=== PATIENT | female | born 1940 | race Caucasian/White ===

== ENCOUNTER 2017-05-29 08:05 | Day surgery (SDC) | payer OTHER ==
[2017-05-29] MEDS ORDERED: DIAZEPAM 5 MG TAB PO ONE (08:10)
[2017-05-29] MEDS ORDERED: diphenhydrAMINE 25 MG CAP PO ONE ×2 (08:10→08:37)
[2017-05-29] MEDS ORDERED: ASPIRIN EC 325 MG TAB PO ONE ×2 (08:10→08:37)
[2017-05-29] MEDS ORDERED: FAMOTIDINE 20 MG TAB PO ONE (08:10)
[2017-05-29] MEDS ORDERED: NS 1,000 ML IV ONE (08:10)
[2017-05-29] MEDS ORDERED: ceFAZolin 2 GM/DEXTROSE 100 ML IV ONE (08:15)
[2017-05-29] MEDS ORDERED: BACITRACIN IRRIGATION/NS 50,000 UNITS/1,000 ML BTL IRR ONE (08:15)
--- NOTE | 2017-05-29 08:30 | CPEKG ---
Heart Rate: 68 RR Interval: 882 P-R Interval: 153 QRSD Interval: 144 QT Interval: 460 QTC Interval: 490 P [place]: 0 QRS [place]: 0 T Wave [place]: 3 EKG Severity - ABNORMAL ECG - EKG Impression: ATRIAL-VENTRICULAR DUAL-PACED COMPLEXES Electronically Signed By: Mehran Morelos 29-May-2017 09:43:34
[2017-05-29] MEDS ORDERED: FAMOTIDINE 20 MG TAB ONE (08:37)
[2017-05-29] MEDS ORDERED: DIAZEPAM 5 MG TAB ONE (08:37)
[2017-05-29 08:55] LABS: % IMMATURE GRANULYOCYTES 0.6 % (0.0-1.1); ABSOLUTE IMMATURE GRANULOCYTES 0.03 10^3/uL (0.00-0.10); ADD DIFF? NO; ADD MORPH? NO; ADD SCAN? NO; ATYPICAL LYMPHOCYTE FLAG 20 (0-99); FRAGMENT RBC FLAG 0 (0-99); HEMATOCRIT 39.8 % (38.0-47.0); LEFT SHIFT FLG 10 (0-99); LIPEMIA HEMOLYSIS FLAG 80 (0-99); MEAN CELL HEMOGLOBIN 30.1 pg (27.9-34.1); MEAN CELL HEMOGLOBIN CONCENTR. 32.7 g/dL (32.4-36.7); MEAN CELL VOLUME 92.1 fL (81.5-99.8); MEAN PLATELET VOLUME 10.8 fL (8.7-11.7); PLATELET CLUMPS FLAG 10 (0-99); PLATELET COUNT 174 10^3/uL (150-400); RED BLOOD CELL COUNT 4.32 10^6/uL (4.18-5.33); RED CELL DISTRIBUTION WIDTH 13.8 % (11.5-15.2)
[2017-05-29 09:02] LABS: INR 1.14 (0.83-1.16); PROTIME(PATIENT) 14.5 SEC (12.0-15.0)
[2017-05-29 09:24] LABS: ANION GAP 13 mEq/L (8-16); CALCIUM 9.4 mg/dL (8.5-10.4); CARBON DIOXIDE 21 mEq/l (22-31); CHLORIDE 109 mEq/L (97-110); CHOLESTEROL 135 mg/dL (140-220); CHOLESTEROL/HDL RATIO 3.21 RATIO (1.00-4.44); CREATININE 0.9 mg/dL (0.6-1.0); GLOMERULAR FILTRATION RATE > 60; GLUCOSE 108 mg/dL (70-100); HIGH DENSITY LIPOPROTEIN 42 mg/dL (40-85); LDL/HDL RATIO 1.57 RATIO (1.00-3.22); LOW DENSITY LIPOPROTEIN 66 mg/dL (80-100); NON-HIGH DENSITY LIPOPROTEIN 93 mg/dL (90-129); POTASSIUM 4.4 mEq/L (3.5-5.2); SODIUM 143 mEq/L (134-144); TRIGLYCERIDE 138 mg/dL (35-135); VERY LOW DENSITY LIPOPROTEINS 27 mg/dL (8-25)
[2017-05-29] MEDS ORDERED: LIDOCAINE 1% 300 MG/30 ML SDV ONE ×2 (09:54→11:00)
[2017-05-29] MEDS ORDERED: fentaNYL 100 MCG/2 ML INJ ONE ×2 (09:55→10:55)
[2017-05-29] MEDS ORDERED: IOPAMIDOL (ISOVUE-370) 150 ML BTL IV ONE (09:55)
[2017-05-29] MEDS ORDERED: MIDAZOLAM 2 MG/2 ML VIAL ONE ×2 (09:55→10:56)
[2017-05-29] MEDS ORDERED: LIDO/EPI 1% **for epidural** 30 ML SDV ONE (11:00)
[2017-05-29] MEDS ORDERED: BUPIVACAINE 0.5% 30 ML SDV ONE (11:00)
--- NOTE | 2017-05-29 13:55 | CPIP ---
[f rep st] INVASIVE CARDIAC PROCEDURE DATE OF PROCEDURE: 05/29/2017 PROCEDURE: Implantable cardioverter defibrillator generator change. INDICATIONS: The patient is 76 years old. She has a known history of an ischemic cardiomyopathy. She had a biventricular ICD that was implanted in October of 2005. She had a generator change plac ed in October of 2011. Her current device is at elective replacement indicators. DESCRIPTION OF PROCEDURE: Following informed consent and in the fasting state, the patient was brou ght to the cardiac catheterization laboratory. The left chest was prepped and draped in the usual s terile fashion. 2% lidocaine was infiltrated into the skin overlying the existing ICD in the left i nfraclavicular fossa. Immediately prior to the procedure, prophylactic antibiotics were administere d. Using the #10 blade, a 4 cm incision was made. Using blunt and sharp dissection as well electro cautery for hemostasis, the capsule was identified. This was opened sharply, and the device was del ivered from the field. All leads were disconnected from the existing device. The pocket was then i rrigated. The new device was brought to the field. All leads were connected to the new device acco rding to outpatient scheduler guidelines. At this point, all leads were reinterrogate through the device. This demonstrated acceptable capture and sensing. The ICD pocket was then closed with 3 layers usin g 2 layers of interrupted suture using 2-0 and 3-0 Vicryl and finally running Stratafix for the skin . Steri-Strips and a dry dressing were applied. COMPLICATIONS: None. DEVICE INFORMATION: The newly implanted device is a Medtronic Viva XT, model #TSAM4D0, serial #[id number]. All the existing leads were implanted November 18, 2005. The atrial lead is a Medtronic 50 76, 52 cm lead, serial #[id number]. The right ventricular lead is Medtronic 6949, 65 cm lead, seria l #[id number]. This is a Sprint Braulio lead currently under recall with acceptable lead impedance and no evidence of noise. The coronary sinus lead is a [employer], 4194, 78 cm lead, [id number]. In the atrium, sensed P waves are 2.6 mV with lead impedance of 361 ohms and a threshold 0.5 V at 0.4 msec. In the right ventricle, sensed R-waves are 14.8 mV with a lead impedance of 893 ohms a nd a capture threshold of 0.75 V at 0.4 msec. The coronary sinus lead impedance is 304 ohms with a threshold of 1.75 V at 0.4 msec. DISPOSITION: The patient will be recovered in the CVC. She will be discharged home later today. /[id number]/MODL
--- NOTE | 2017-05-29 14:10 | CPIP ---
[f rep st] INVASIVE CARDIAC PROCEDURE DATE OF PROCEDURE: 05/29/2017 INDICATIONS: The patient is a 76-year-old female. She has known coronary artery disease and a hist ory of an ischemic cardiomyopathy. Recently, she has developed dyspnea with [place] [employer] ion Functional Class III symptoms associated with [place] Cardiovascular [employer] Class 3 angina. S he is referred for right and left heart catheterization with this history. PROCEDURE: Diagnostic right and left heart catheterization, coronary angiography, left ventriculogr aphy. TECHNIQUE: Following informed consent and in the fasting state, the patient was brought to the [facility] catheterization laboratory. The right groin was prepped and draped in the usual sterile fashion . The modified Seldinger technique was used to access the right femoral vein and femoral artery. A 6-Belizean arterial and 7-Belizean venous sheath were placed. Using the PWP catheter, a full right hea rt catheterization was performed. Using standard Multipack, orthogonal images were obtained of the coronary arteries and left ventriculography was performed. Following the procedure, all catheters w ere removed from the body. FINDINGS: HEMODYNAMICS: The pulmonary capillary wedge pressure was 32 mmHg; pulmonary artery press ure 55/26/38 mmHg; right ventricular pressure 50/13/21 mmHg; right atrial pressure 22 mmHg; left demond tricular pressure 126/15/27 mmHg; aortic pressure 125/68/92 mmHg. Aortic saturation 98.3%, pulmonar y artery saturation 76%, right atrial saturation 79%. Calculated cardiac output by Sharlene was 5.7 L/m inute per meter squared. ANGIOGRAPHY: 1. Left main: Left main is a large caliber vessel. There is appropriate bifurcation into the left anterior descending and circumflex distributions. The left main contains a distal 20% stenosis. 2. Left anterior descending: The left anterior descending is large caliber transapical vessel. Du ring its course toward the apex, there are 2 small diagonal branches that are identified. There is also a large multi-branching septal perforators which gives off collaterals to the right coronary ar bradley. The [place] LAD and branch diagonal vessels are unobstructed. They do contain luminal irregul arities up to 20%. There is, however, a high-grade eccentric and ulcerated lesion in a large septal product lister, resulting in about a 90% obstruction. 3. Circumflex: The circumflex is large in caliber in the proximal vessel. During its course in th e AV groove, it gives rise to a single bifurcating obtuse marginal branch, after which it becomes di minutive. There is a 70% lesion noted immediately proximal to the bifurcation in the obtuse margina l branch. 4. Right coronary artery: The right coronary artery is known to be chronically occluded. There is collateralization from the left system via the septal arcade. LEFT VENTRICULOGRAPHY: The left ventriculogram was complicated by ventricular tachycardia. The eje ction fraction appears to be 60% to 65%, estimated on the final beat of the ventriculogram. IMPRESSION: 1. [place] coronary artery disease characterized by a known chronically occluded right coronary wojciech ry collateralized from the left, associated with a 70% lesion of a bifurcating obtuse marginal branc h and a high-grade 90% ulcerated septal lesion. 2. History of ischemic cardiomyopathy, now with normalization of the ejection fraction. 3. No significant valvular heart disease identified. 4. Evidence of elevated filling pressures with a markedly elevated pulmonary capillary wedge pressu re of 32 mmHg. /[id number]/MODL
== END 2017-05-29 19:05 | disposition home or self-care (01) ==
LOC: FCATH 08:05
PROVIDERS: ATTEND Internal Medicine Cardiovascular Disease
PROC: 02HL3KZ Insertion of Defibrillator Lead into Left Ventricle, Percutaneous Approach (ICD-10-PCS; principal; 2017-05-29)
PROC: 4A023N8 Measurement of Cardiac Sampling and Pressure, Bilateral, Percutaneous Approach (ICD-10-PCS; principal; 2017-05-29)
PROC: 0JPT0PZ Removal of Cardiac Rhythm Related Device from Trunk Subcutaneous Tissue and Fascia, Open Approach (ICD-10-PCS; principal; 2017-05-29)
PROC: B2151ZZ Fluoroscopy of Left Heart using Low Osmolar Contrast (ICD-10-PCS; principal; 2017-05-29)
PROC: B2111ZZ Fluoroscopy of Multiple Coronary Arteries using Low Osmolar Contrast (ICD-10-PCS; principal; 2017-05-29)
PROC: 0JH608Z Insertion of Defibrillator Generator into Chest Subcutaneous Tissue and Fascia, Open Approach (ICD-10-PCS; principal; 2017-05-29)
DX: I25.10 Atherosclerotic heart disease of native coronary artery without angina pectoris (principal); E78.5 Hyperlipidemia, unspecified; I25.5 Ischemic cardiomyopathy; R53.83 Other fatigue; I10 Essential (primary) hypertension; E11.9 Type 2 diabetes mellitus without complications; E66.9 Obesity, unspecified; Z95.0 Presence of cardiac pacemaker
CPT/HCPCS: C1760; C1882; J0690; J1644; J2250; J3010; Q9967

== ENCOUNTER → 2017-08-08 | Outpatient (CLI) | payer OTHER | LOC: CIMAGING 11:10 | PROVIDERS: ATTEND Internal Medicine | DX: J44.9 Chronic obstructive pulmonary disease, unspecified (principal) | CPT/HCPCS: 71020; G0463 ==

== ENCOUNTER → 2017-08-22 | Outpatient (CLI) | payer OTHER | LOC: FIMAGING 09:21 | PROVIDERS: ATTEND Internal Medicine | DX: Z12.31 Encounter for screening mammogram for malignant neoplasm of breast (principal) | CPT/HCPCS: G0202 ==

== ENCOUNTER → 2017-12-24 | Outpatient (CLI) | payer OTHER | LOC: CIMAGING 08:14 | PROVIDERS: ATTEND Physician Assistant | DX: M51.35 Other intervertebral disc degeneration, thoracolumbar region (principal); M25.78 Osteophyte, vertebrae; M99.72 Connective tissue and disc stenosis of intervertebral foramina of thoracic region | CPT/HCPCS: 72131-PO ==

== ENCOUNTER 2018-01-03 14:20 | Emergency (ER) | payer OTHER ==
[2018-01-03] MEDS ORDERED: IOPAMIDOL (ISOVUE 370) 100 ML BTL IV ONE (14:41)
[2018-01-03 15:18] VITALS: BP 161/111; PULSE 81; RESP 20; TEMP 97.9; O2SAT 94
--- NOTE | 2018-01-03 15:26 | EDPHY ---
H & P Stated Complaint: DEVIEN difficulty speaking Time Seen by Provider: 01/03/18 14:27 HPI/ROS: CHIEF COMPLAINT: Headache, trouble with speech HISTORY OF PRESENT ILLNESS: This 77-year-old female with a history of coronary artery disease status post stenting and defibrillator placement. She arrives by private car with her who reports that she has been having difficulty speaking for the past 2 hr. The patient herself complains of left-sided headache. She also notes that she is having trouble finding the right words. She denies a history of hypertension. She is not taking blood thinning medications other than a daily aspirin. She does not have a history of migraine headache. REVIEW OF SYSTEMS: Complete review of systems not performed due to patient's condition. No recent illnesses per her . Review of records produce the following: Past Medical history: 1. Ischemic cardiomyopathy status post stenting 2. Left breast DCIS 3. Hypertension 4. Osteoporosis Past surgical history: 1. Pacemaker/defibrillator placement 2. Left breast lumpectomy 3. Partial hysterectomy 4. section x3 5. Carpal tunnel release 6. Left shoulder surgery Social history: She is . General Appearance: Alert. Vital signs reviewed. Initial blood pressure 189/ 112. Eyes: Pupils equal and round, no conjunctival injection, no discharge. Anicteric. ENT, Mouth: Mucous membranes are moist, no oropharyngeal erythema or edema. Neck: No lymphadenopathy, supple. Respiratory: Lungs are clear to auscultation; no wheezes, rales, or rhonchi. Cardiovascular: Regular rate and rhythm; no murmur, rub, or gallop. Gastrointestinal: Abdomen is soft and nontender, no masses or organomegaly, bowel sounds normal. Skin: Warm and dry, no rashes on exposed skin, normal color. Extremities: No lower extremity edema. Neurological: Alert. SHAILESH. EOMI. Left nasal labial fold flattening. Tongue midline. Difficulty with word finding when trying to describe the pictures that are included with the NIH stroke scale. No upper or lower extremity drift. Psychiatric: Flat affect. - Personal History Current Tetanus/Diphtheria Vaccine: Yes Current Tetanus Diphtheria and Acellular Pertussis (TDAP): Yes Tetanus Vaccine Date: within 10 yrs - Medical/Surgical History Hx Asthma: No Hx Chronic Respiratory Disease: No Hx Diabetes: No Hx Cardiac Disease: No Hx Renal Disease: No Hx Cirrhosis: No Hx Alcoholism: No Hx HIV/AIDS: No Hx Splenectomy or Spleen Trauma: No Other PMH: ortho, HTN, defib in place, 4 cardiac stents, 3 c-sections - Social History Smoking Status: Former smoker Constitutional: Initial Vital Signs Temperature (C) 36.4 C 01/03/18 14:29 Heart Rate 69 01/03/18 14:29 Respiratory Rate 10 L 01/03/18 14:29 Blood Pressure 189/112 H 01/03/18 14:29 O2 Sat (%) 97 01/03/18 14:29 O2 Delivery Mode Room Air Allergies/Adverse Reactions: codeine Allergy (Verified 01/03/18 14:27) haloperidol [From Haldol] Allergy (Verified 01/03/18 14:27) haloperidol lactate [From Haldol] Allergy (Verified 01/03/18 14:27) hydrocodone Allergy (Verified 01/03/18 14:27) oxycodone [Oxycodone] Allergy (Verified 01/03/18 14:27) Home Medications: Medication Instructions Recorded Aspirin [Aspirin 325 mg (*)] 325 mg PO DAILY 09/25/16 Herbals/Supplements -Info Only 1 ea PO DAILY 09/25/16 Multivitamins [Multivitamin (*)] 1 each PO DAILY 09/25/16 Carvedilol [Coreg (*)] 25 mg PO BID 05/29/17 Lisinopril [Zestril 10 mg (*)] 10 mg PO DAILY 05/29/17 Simvastatin [Zocor] 80 mg PO DAILY18 05/29/17 Medical Decision Making - Diagnostics Imaging Results: Imaging Impressions Head CT 01/03/18 00:00 Impression: Negative. No acute intracranial hemorrhage or evidence of acute cortical ischemia. Findings discussed with Emergency Department physician, Valerie Hussein on 2017, 15:06. ED Course/Re-evaluation: Stroke alert called after initial evaluation of the patient. Ambulance was called for transfer to the nearest hospital, as it is clear that complete care cannot be provided for her in this setting. She was interviewed and examined by Dr. Salinas from [facility] via telemedicine. TPA is recommended if her CT scan is negative for hemorrhage. CT scan of the head reviewed by me and reported to me by Dr. Guidry. There is no intracranial hemorrhage. No evidence of large volume stroke. She has a history of breast cancer and tumor remains in the differential. Migraine phenomenon is also in the differential. Ambulance crew here when the patient completed her CT scan. I have spoken with Dr. Arturo Renteria at [facility], he has accepted transfer. She is transferred prior to receiving tPA as the travel distance is quite short (minutes) and IV access was not yet obtained. I felt that it would take longer to obtain access (three failed attempts had been made previously and to obtain TPA from the pharmacy than it would for her to be transported to [facility]. Dr. Renteria is aware of the negative CT scan and of the fact that tPA has not been administered. Blood pressure at discharge was 160/110. She continues to complain of headache. No change in her neurologic status while here. Critical Care Time: I spent a total of 15 minutes of critical care time in obtaining history, performing a physical exam, bedside monitoring of interventions, collecting and interpreting tests and discussion with consultants but not including time spent performing procedures. She was at risk of neurologic deterioration. Departure - Departure Disposition: Acute Care Hospital Not [facility] Clinical Impression: Acute ischemic stroke Condition: Serious Referrals: Judy Quinones MD [Primary Care Provider] - As per Instructions
== END 2018-01-03 15:05 | disposition short-term general hospital (02) ==
LOC: CED 14:20
DX: I63.9 Cerebral infarction, unspecified (principal); I10 Essential (primary) hypertension; Z79.82 Long term (current) use of aspirin; Z87.891 Personal history of nicotine dependence; Z95.0 Presence of cardiac pacemaker; Z95.5 Presence of coronary angioplasty implant and graft
CPT/HCPCS: 70450-PO; Q9967

== ENCOUNTER → 2018-01-27 | Outpatient (CLI) | payer OTHER ==
[~2018-01-27] MED LIST: IOPAMIDOL (ISOVUE 370) 100 ML BTL IV ONE
== END ==
LOC: CIMAGING 08:21
PROVIDERS: ATTEND Psychiatry & Neurology Neurology
DX: I65.23 Occlusion and stenosis of bilateral carotid arteries (principal); I25.10 Atherosclerotic heart disease of native coronary artery without angina pectoris
CPT/HCPCS: 70496; 70498; Q9967; 82565-PO

== ENCOUNTER → 2018-04-21 | Outpatient (CLI) | payer OTHER ==
[~2018-04-21] MED LIST changes: -IOPAMIDOL (ISOVUE 370) 100 ML BTL IV ONE; +IOPAMIDOL (ISOVUE-M 200) 20 ML VIAL ONE; +LIDOCAINE 1% 300 MG/30 ML SDV ONE
[2018-04-21 09:19] LABS: INR 1.1 (0.83-1.16); PROTIME(PATIENT) 14.4 SEC (12.0-15.0)
== END ==
LOC: FIMAGING 08:24
PROVIDERS: ATTEND Neurological Surgery
PROC: B02B1ZZ Computerized Tomography (CT Scan) of Spinal Cord using Low Osmolar Contrast (ICD-10-PCS; principal; 2018-04-21)
PROC: 3E0R3KZ Introduction of Other Diagnostic Substance into Spinal Canal, Percutaneous Approach (ICD-10-PCS; principal; 2018-04-21)
DX: M48.062 Spinal stenosis, lumbar region with neurogenic claudication (principal); M47.26 Other spondylosis with radiculopathy, lumbar region; M43.16 Spondylolisthesis, lumbar region; M51.36 Other intervertebral disc degeneration, lumbar region; M51.26 Other intervertebral disc displacement, lumbar region
CPT/HCPCS: 62284; 72132; 72265; Q9966

== ENCOUNTER 2018-06-22 19:45 | Inpatient (IN) | payer OTHER ==
--- NOTE | 2018-06-22 20:28 | EDPHY ---
H & P Stated Complaint: Back pain- post op 06/19/18 Time Seen by Provider: 06/22/18 20:12 HPI/ROS: CHIEF COMPLAINT: Postoperative pain HISTORY OF PRESENT ILLNESS: This is a 77-year-old female who is postoperative day number 3 status post left L4-5 laminectomy, right TLIF. She was discharged from this hospital around 6:00 p.m. Yesterday, about 24 hr ago. She has Dilaudid and Robaxin to use at home. Her tells me that she was having severe muscle spasms in both legs throughout the day. She did take her Robaxin and her Dilaudid in the morning, neither are certain what she has taken since then. She was seen by a physical therapist at home and it was recommended that she return to the hospital. Patient denies specific weakness, but feels weak in general. She denies fever. No bowel or bladder changes. She had a bowel movement yesterday. She received two mg of IV Ativan en route to the hospital in the ambulance. This medication was apparently chosen by the paramedics because the patient has multiple drug allergies. REVIEW OF SYSTEMS: A ten point review of systems was performed and is negative with the exception of the items mentioned in the HPI. Past medical history: 1. HTN 2. CHF 3. AICD 4. Breast CA Past surgical history: 1. Lumbar surgery as above 2. AICD placed 3. Lumpectomy 4. C-sections Social history: She lives with her . Remote tobacco use, none now. No alcohol. General Appearance: Alert. Vital signs reviewed. She received Ativan 2 mg and is sleepy but easily arousable and answering questions appropriately. 88% on RA, 97% son 2L NC. BP 146/62. Eyes: Pupils equal and round, no conjunctival injection, no discharge. Anicteric. Respiratory: Lungs are clear to auscultation; no wheezes, rales, or rhonchi. Cardiovascular: Regular rate and rhythm; no murmur, rub, or gallop. Gastrointestinal: Abdomen is soft and nontender, no masses or organomegaly, bowel sounds normal. Skin: Warm and dry, no rashes on exposed skin, normal color. Back: Nontender to palpation over the thoracolumbar spine. No CVAT. Incision clean and dry, minimal chase-incisional erythema, no warmth and no drainage. Extremities: No lower extremity edema, no calf tenderness or swelling. Neurological: Strength is 4+/5 in both LEs, sensation intact to light touch over both LEs. Psychiatric: Normal affect. - Personal History Tetanus Vaccine Date: within 10 yrs - Medical/Surgical History Hx Asthma: No Hx Chronic Respiratory Disease: No Hx Diabetes: No Hx Cardiac Disease: No Hx Renal Disease: No Hx Cirrhosis: No Hx Alcoholism: No Hx HIV/AIDS: No Hx Splenectomy or Spleen Trauma: No Other PMH: ortho, HTN, defib in place, 3 c-sections, pacemaker, breast cancer with lumpectomy, CHF since 2004 - Social History Smoking Status: Former smoker Constitutional: Initial Vital Signs Temperature (C) 37.8 C 06/22/18 19:55 Heart Rate 81 06/22/18 19:55 Respiratory Rate 20 06/22/18 19:55 Blood Pressure 146/62 H 06/22/18 19:55 O2 Sat (%) 88 L 06/22/18 19:55 O2 Delivery Mode Nasal Cannula O2 (L/minute) 2 Allergies/Adverse Reactions: codeine Allergy (Verified 06/22/18 19:55) Vomiting haloperidol lactate [From Haldol] Allergy (Verified 06/22/18 19:55) Other-Enter Comments hydrocodone Allergy (Verified 06/22/18 19:55) Constipation oxycodone [Oxycodone] Allergy (Verified 06/22/18 19:55) Constipation haloperidol lactate Allergy (Unknown, Uncoded 06/22/18 19:55) Other-Enter Comments Home Medications: Medication Instructions Recorded Carvedilol [Coreg (*)] 25 mg PO BID 05/29/17 Lisinopril [Zestril 10 mg (*)] 10 mg PO DAILY 05/29/17 Simvastatin [Zocor] 80 mg PO DAILY18 05/29/17 Gabapentin [Neurontin 300 MG (*)] 300 mg PO TID 04/14/18 Melatonin [Melatonin 5 mg] 5 mg PO HS PRN 06/11/18 Multivitamins [Multivitamin (*)] 1 each PO DAILY tab 06/21/18 Acetaminophen [Tylenol ES 500 mg 1,000 mg PO Q8HRS PRN 06/22/18 (*)] Clopidogrel Bisulfate [Clopidogrel] 75 mg PO DAILY 06/22/18 Docusate Sodium [Colace 100 MG (*)] 100 mg PO BID PRN 06/22/18 Cyclobenzaprine [Flexeril 10 MG 10 mg PO TID #60 tab 06/25/18 (*)] Gabapentin [Neurontin 100 MG (*)] 100 mg PO TID #90 cap 06/25/18 HYDROmorphone HCL [Dilaudid 2 mg 2 - 4 mg PO Q4HRS PRN #60 tab 06/25/18 (*)] Polyethylene Glycol 3350 [Miralax 17 gm PO DAILY PRN pkt 06/25/18 17 gm (*)] Medical Decision Making ED Course/Re-evaluation: Postoperative pain, s/p lumbar surger on 06/19/18. Not eating well at home (DC- ed yesterday). Evaluated by neurosurgery service in the ED. She will be admitted for observation, pain control. No evidence of new neurologic deficit or infection. She has no urinary complaints and I do not suspect UTI. She is not eating well at home but has nothing to suggest SBO. - Data Points Laboratory Results: Laboratory Results 06/22/18 20:20 06/22/18 20:20 Medications Given: Discontinued Medications Acetaminophen (Tylenol) 1,000 mg PO Q8HRS PRN PRN Reason: Pain, Mild Stop: 12/19/18 21:35 Last Admin: 06/25/18 02:40 Dose: 1,000 mg Atorvastatin Calcium (Lipitor) 40 mg PO DAILY@1800 [facility] Stop: 12/20/18 17:59 Last Admin: 06/24/18 17:05 Dose: Not Given Carvedilol (Coreg) 25 mg PO BID [facility] Stop: 12/20/18 08:59 Last Admin: 06/25/18 08:47 Dose: 25 mg Clopidogrel Bisulfate (Plavix) 75 mg PO DAILY [facility] Stop: 12/20/18 08:59 Last Admin: 06/23/18 09:57 Dose: 75 mg Cyclobenzaprine HCl (Flexeril) 10 mg PO TID [facility] Stop: 12/20/18 09:14 Last Admin: 06/25/18 08:47 Dose: 10 mg Docusate Sodium (Colace) 100 mg PO BID PRN PRN Reason: Constipation Stop: 12/19/18 21:35 Last Admin: 06/23/18 09:57 Dose: 100 mg Enoxaparin Sodium (Lovenox) 40 mg SC DAILY [facility] Stop: 12/20/18 10:44 Last Admin: 06/25/18 08:47 Dose: 40 mg Gabapentin (Neurontin) 300 mg PO TID [facility] Stop: 12/19/18 21:59 Last Admin: 06/23/18 11:42 Dose: Not Given Gabapentin (Neurontin) 400 mg PO TID [facility] Stop: 12/19/18 21:59 Last Admin: 06/25/18 08:47 Dose: 400 mg Hydromorphone HCl (Dilaudid) 0.5 mg IVP [facility]NOW ONE Stop: 06/22/18 21:04 Last Admin: 06/22/18 21:08 Dose: 0.5 mg Hydromorphone HCl (Dilaudid) 2 - 4 mg PO Q4HRS PRN PRN Reason: Pain, Severe Able to Take PO Stop: 07/02/18 21:35 Last Admin: 06/24/18 23:21 Dose: 2 mg Hydromorphone HCl (Dilaudid Tank Car Mechanic) 0 mg IV PRN PRN; Protocol PRN Reason: Pain, Severe Unable to Take PO Stop: 07/02/18 21:36 Last Admin: 06/22/18 22:53 Dose: 6 mg Sodium Chloride (Ns) 1,000 mls @ 75 mls/hr IV CONT [facility] Stop: 12/19/18 21:44 Last Admin: 06/22/18 22:53 Dose: 1,000 mls Lisinopril (Zestril) 10 mg PO DAILY [facility] Stop: 12/20/18 08:59 Last Admin: 06/25/18 08:47 Dose: 10 mg Magnesium Hydroxide (Milk Of Magnesia) 30 ml PO DAILY PRN; Protocol PRN Reason: Constipation Stop: 12/19/18 21:36 Last Admin: 06/24/18 08:36 Dose: 30 ml Methocarbamol (Robaxin) 750 mg PO QID PRN PRN Reason: Spasms Stop: 12/19/18 21:35 Last Admin: 06/23/18 07:58 Dose: 750 mg Polyethylene Glycol (Miralax) 17 gm PO DAILY PRN; Protocol PRN Reason: Constipation, patient prefers Stop: 12/19/18 21:36 Last Admin: 06/24/18 05:54 Dose: 17 gm Departure - Departure Disposition: [facility] Clinical Impression: Postoperative back pain Condition: Good
[2018-06-22 20:44] LABS: PLATELET COUNT 181 10^3/uL (150-400)
[2018-06-22] MEDS ORDERED: HYDROmorphONE/DILAUDID 1 MG/ML INJ IVP ONE (21:03)
[2018-06-22] MEDS ORDERED: DOCUSATE SODIUM 100 MG CAP PO PRN (21:36)
[2018-06-22] MEDS ORDERED: MELATONIN 3 MG TAB PO PRN (21:36)
[2018-06-22] MEDS ORDERED: HYDROmorphONE/DILAUDID 6 MG/30 ML PCA IV PRN (21:37)
[2018-06-22] MEDS ORDERED: MAGNESIUM HYDROXIDE 30 ML UDCUP PO PRN (21:37)
[2018-06-22] MEDS ORDERED: ONDANSETRON DISINTEGRATING 4 MG TAB PO PRN (21:37)
[2018-06-22] MEDS ORDERED: ONDANSETRON 4 MG/2 ML VIAL IVP PRN (21:37)
[2018-06-22] MEDS ORDERED: NALOXONE HCL 0.4 MG/ML INJ IVP PRN (21:37)
[2018-06-22] MEDS ORDERED: HYDROmorphONE/DILAUDID 1 MG/ML INJ IVP PRN (21:37)
[2018-06-22] MEDS ORDERED: BISACODYL 10 MG SUPP PR PRN (21:37)
[2018-06-22] MEDS ORDERED: ACETAMINOPHEN 650 MG SUPP PR PRN (21:37)
[2018-06-22] MEDS ORDERED: LACTULOSE 20 GM/30 ML UDCUP PO PRN (21:37)
[2018-06-22] MEDS ORDERED: LORazepam 0.5 MG TAB PO PRN (21:37)
[2018-06-22] MEDS ORDERED: diphenhydrAMINE 25 MG CAP PO PRN (21:37)
[2018-06-22] MEDS ORDERED: NS 1,000 ML IV SCH (21:45)
[2018-06-22] MEDS: GABAPENTIN 300 MG CAP PO SCH (22:53)
[2018-06-23] MEDS: METHOCARBAMOL 750 MG TAB PO PRN ×2 (03:23→07:58)
[2018-06-23] MEDS: ACETAMINOPHEN 500 MG TAB PO PRN ×2 (07:58→16:25)
[2018-06-23] MEDS ORDERED: CLOPIDOGREL BISULFATE 75 MG TAB PO SCH (09:00)
--- NOTE | 2018-06-23 09:42 | GHP ---
[f rep st] HISTORY AND PHYSICAL DATE OF ADMISSION: 06/22/2018 ADMISSION DIAGNOSIS: Intractable low back pain, status post surgery on 06/19. HOSPITAL COURSE/HISTORY/MAJOR MEDICAL FINDINGS: The patient is a 77-year-old female who underwent L4 -5 laminectomy with right-sided TLIF posterior fusion by Dr. Schmitz on 06/19/2018, at [facility]. She subsequently after pain management was optimized was discharged to home. She was d oing okay at home until yesterday when she developed worsening lower back pain with her back locking up and pain shooting down across her right hip into her right leg. The patient attempted to take her home medications, but without any relief, came to [facility] for further [place]. Patient has also been having nausea and is unable to tolerate food at home in the next. REVIEW OF SYSTEMS: Review of systems is negative other than what is stated in the HPI. Please see p ertinent negatives and positives. Please note, the patient denies any new increased weakness, but monique hebert feels generally overall weak in her legs. She denies any loss of bowel or bladder control. Her l ast bowel movement was on Friday. PAST MEDICAL HISTORY: Significant for hypertension, defibrillator in place, 3 C-sections, breast can cer with lumpectomy, and history of CHF since 2004. SOCIAL HISTORY: She is a prior smoker. ALLERGIES: To codeine, allopurinol, hydrocodone, oxycodone. HOME MEDICATIONS: Include carvedilol 25 mg 1 p.o. b.i.d., lisinopril 10 mg 1 p.o. daily, simvastatin 80 mg 1 p.o. daily, gabapentin 300 mg p.o. t.i.d., melatonin 5 mg p.o. q.h.s., Tylenol 1000 mg 1 p.o . q.8 hours p.r.n. pain, Dilaudid 2-4 mg q.4 hours p.r.n. pain, Robaxin 750 mg 1 p.o. q.6 hours p.r.n . pain, multivitamin 700 mg 1 p.o. q. day, and Senokot 1-2 tablets p.o. b.i.d. PHYSICAL EXAMINATION: VITAL SIGNS: BP 118/54, pulse is 75. She is 94% on 2 L nasal cannula. Temp is 36.9. GENERAL: The patient is in no acute distress. NEUROLOGIC: She is alert and oriented x3. She answers all questions appropriately and affect is appropriate for the given situation. Face is symmetric. EOMI, PERRLA. Motor exam: The patient is a 5/5 and equal in her bilateral upper extremi ties, including her deltoids, triceps, biceps, wrist flexors, extensors, interossei, intrinsic digital media manager, iliopsoas, hamstrings, quadriceps, plantar flexion, dorsiflexion, EHL. Sensation is intact in bilate ral upper and bilateral lower extremities. Her incision is clean, dry, and intact without any edema, erythema, or discharge. Sensation is intact to light touch in her bilateral upper and bilateral low er extremities. ASSESSMENT/ PLAN: The patient is a 77-year-old female who is postop day 4 from a L4-5 TLIF and poste rior fusion who is having increased intractable low back pain. At this point, discussed with the pat ient that this may just be some postoperative nerve healing, as well as muscle spasms. Will change h er muscle relaxer over to Flexeril to see if she provides more benefit with this. I have also increa sed her gabapentin up to 400 mg t.i.d. she is currently on a Dilaudid SWITCH MAKER. We will try to titrate h er down to Dilaudid p.o. Unfortunately, she has a codeine allergy and also allergies to hydrocodone, oxycodone, so we are limited with our agents for pain management. We will order physical therapy, o ccupational therapy as tolerated. Have also ordered some lumbar x-rays to ensure that there has not been any change with the hardware since surgery. This was discussed in detail with Dr. David Schmitz will also see the patient today. /[id number]/MODL
[2018-06-23] MEDS: LISINOPRIL 10 MG TAB PO SCH (09:57)
[2018-06-23] MEDS: POLYETHYLENE GLYCOL 3350 17 GM PKT PO PRN (09:57)
[2018-06-23] MEDS: CARVEDILOL 25 MG TAB PO SCH ×2 (09:57→21:34)
[2018-06-23] MEDS: HYDROmorphONE/DILAUDID 2 MG TAB PO PRN ×3 (10:13→22:32)
--- NOTE | 2018-06-23 10:46 | PDMN ---
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
[2018-06-23] MEDS: CYCLOBENZAPRINE 10 MG TAB PO SCH ×3 (11:41→21:34)
[2018-06-23] MEDS: GABAPENTIN 300 MG CAP PO SCH (11:42)
--- NOTE | 2018-06-23 15:08 | ASMTCMCOM ---
CM Note CM Note Notes: Pt post op day 4 L 4-5 TLIF and posterior fusion. Pt d/c from [facility] 06/21/18 with [facility] PT. Pt returns with post op pain. [facility] PT attempted one visit but pt was in pain and sent to ED. Home care PT observed to be sleeping in recliner which may not be best for back precautions. OT/PT to eval this admit again. CM to follow. Date Signed: 06/23/2018 03:08 PM Electronically Signed By:BERRY Valladares
[2018-06-23] MEDS: GABAPENTIN 400 MG CAP PO SCH ×2 (16:25→21:34)
[2018-06-23] MEDS: ENOXAPARIN 40 MG/0.4 ML SYR SC SCH (16:32)
[2018-06-23] MEDS: ATORVASTATIN CALCIUM 40 MG TAB PO SCH ×2 (18:16→18:18)
[2018-06-24] MEDS: POLYETHYLENE GLYCOL 3350 17 GM PKT PO PRN (05:54)
[2018-06-24] MEDS: HYDROmorphONE/DILAUDID 2 MG TAB PO PRN ×3 (08:36→23:21)
[2018-06-24] MEDS: ENOXAPARIN 40 MG/0.4 ML SYR SC SCH (08:41)
[2018-06-24] MEDS: CARVEDILOL 25 MG TAB PO SCH ×2 (08:41→21:40)
[2018-06-24] MEDS: CYCLOBENZAPRINE 10 MG TAB PO SCH ×3 (08:41→21:43)
[2018-06-24] MEDS: LISINOPRIL 10 MG TAB PO SCH (08:41)
[2018-06-24] MEDS: GABAPENTIN 400 MG CAP PO SCH ×4 (08:41→21:43)
--- NOTE | 2018-06-24 08:48 | SOAPPROG ---
SOAP Progress Note Assessment/Plan: Assessment: 77 yo female POD #5 sp L4/5 TLIF readmitted due to poor pain control and confusion at home Pain under better control after decreasing Dilaudid and increasing Gabapentin and Tylenol No neuro deficits Plan: CPM with oral pain regimen PT/OT as tolerated LSO when OOB fredaley dc to home with [facility] in AM 06/24/18 08:45 Subjective: sitting in bedside chair. Reports pain at 1/10 seated and 4/10 when up ambulating denies new numbness tingling or weakness Objective: Vital Signs Temp Pulse Resp BP Pulse Ox 37.1 C 71 15 133/56 H 93 06/24/18 07:30 06/24/18 08:41 06/24/18 07:30 06/24/18 08:41 06/24/18 07:30 Laboratory Results 06/22/18 22:08 06/23/18 06/24/18 06/25/18 05:59 05:59 05:59 Intake Total 991 Output Total 1750 300 Balance -759 -300 Neuro Speech clear Follows commands x 4 NORTON, sens +LT ambulatory w walker Incision: CDI. dressing changed today by myself ICD10 Worksheet Patient Problems: Problems Problem Status Onset Postoperative back pain Acute Lumbar spondylosis Acute
[2018-06-24] MEDS: ACETAMINOPHEN 500 MG TAB PO PRN ×2 (08:55→15:54)
[2018-06-24] MEDS: ATORVASTATIN CALCIUM 40 MG TAB PO SCH ×2 (17:04→17:05)
[2018-06-25] MEDS: ACETAMINOPHEN 500 MG TAB PO PRN (02:40)
--- NOTE | 2018-06-25 07:40 | NEUSURGPN ---
Assessment/Plan: Assessment: 77 yo female POD #6 sp L4/5 TLIF readmitted due to poor pain control and confusion at home Pain under better control after decreasing Dilaudid and increasing Gabapentin and Tylenol No neuro deficits Plan: CPM with oral pain regimen - Rx are in chart PT/OT as tolerated LSO when OOB Dc to home with [facility] today Daily dressing changes Pt seen by Dr Schmitz and plan discussed Call NS with any questions Subjective: Pt resting in bed, states she is doing well Objective: AAOx3 NAD VSS MAEx4 Motor 5/5 BLE Incision dressed cdi Urinary Catheter in Place: No - Physician Discussed Patient with DrNena: Nadir Patient Seen by : Nadir Neurosurgery Physical Exam - Vitals, I&O, Labs I and O 06/24/18 06/25/18 06/26/18 05:59 05:59 05:59 Intake Total 991 500 Output Total 1750 300 Balance -759 200 Intake: Oral (ml) 450 500 IV Infused (ml) 541 Ns 1,000 ml @ 75 mls/hr 541 IV CONT ESTUARDO Rx#: [id number] Output: Urine (ml) 1750 300 Bedpan 150 Bedside Commode 1000 Toilet 600 300 Other: Intake Quantity Yes Yes Sufficient Number of Voids Bedpan 1 Bedside Commode 1 Toilet 1 1 Number of Stools Toilet 2 1 Vital Signs Temp Pulse Resp BP Pulse Ox 37.0 C 75 16 101/71 94 06/24/18 23:31 06/24/18 23:31 06/24/18 23:31 06/24/18 23:31 06/24/18 23:31 Laboratory Results 06/22/18 22:08 ICD10 Worksheet Patient Problems: Problems Problem Status Onset Postoperative back pain Acute Lumbar spondylosis Acute
[2018-06-25 07:42] VITALS: BP 131/63
[2018-06-25] MEDS: CARVEDILOL 25 MG TAB PO SCH (08:47)
[2018-06-25] MEDS: GABAPENTIN 400 MG CAP PO SCH (08:47)
[2018-06-25] MEDS: LISINOPRIL 10 MG TAB PO SCH (08:47)
[2018-06-25] MEDS: CYCLOBENZAPRINE 10 MG TAB PO SCH (08:47)
[2018-06-25] MEDS: ENOXAPARIN 40 MG/0.4 ML SYR SC SCH (08:47)
--- NOTE | 2018-06-25 10:02 | PDIAF ---
- Diagnosis Code Status: Full Code - Medication Management Discharge Medications: Medications to Continue on Transfer Carvedilol [Coreg (*)] 25 mg PO BID 05/29/17 [Last Taken 06/22/18 09:00] Lisinopril [Zestril 10 mg (*)] 10 mg PO DAILY 05/29/17 [Last Taken 06/22/18] Simvastatin [Zocor] 80 mg PO DAILY18 05/29/17 [Last Taken 06/21/18] Gabapentin [Neurontin 300 MG (*)] 300 mg PO TID 04/14/18 [Last Taken 06/22/18 12 :00] Melatonin [Melatonin 5 mg] 5 mg PO HS PRN 06/11/18 [Last Taken 06/21/18] Multivitamins [Multivitamin (*)] 1 each PO DAILY tab 06/21/18 [Last Taken 06/22] Acetaminophen [Tylenol ES 500 mg (*)] 1,000 mg PO Q8HRS PRN 06/22/18 [Last Taken 06/21/18] Clopidogrel Bisulfate [Clopidogrel] 75 mg PO DAILY 06/22/18 [Last Taken 06/22/18 ] Docusate Sodium [Colace 100 MG (*)] 100 mg PO BID PRN 06/22/18 [Last Taken 06/22 09:00] Cyclobenzaprine [Flexeril 10 MG (*)] 10 mg PO TID #60 tab 06/25/18 [Last Taken Unknown] Gabapentin [Neurontin 100 MG (*)] 100 mg PO TID #90 cap 06/25/18 [Last Taken Unknown] HYDROmorphone HCL [Dilaudid 2 mg (*)] 2 - 4 mg PO Q4HRS PRN #60 tab 06/25/18 [ Last Taken Unknown] Polyethylene Glycol 3350 [Miralax 17 gm (*)] 17 gm PO DAILY PRN pkt 06/25/18 [ Last Taken Unknown] Discharge Medications: Refer to the Discharge Home Medication list for PRN reason. - Orders Services needed: Home Care, Certified [employer], Physical Therapy, Occupational Therapy Home Care Face to Face: I certify that this patient was under my care and that I had the required idqs-nd-resy encounter meeting the encounter requirements on the discharge day. My findings support the fact that the patient is homebound as defined in Home Care Face to Face Continued: [facility] Chapter 7 Medicare Benefits Manual 30.1.1 , The condition of the patient is such that there exists a normal inability to leave home and consequently, leaving home would require a considerable and taxing effort. Diet Recommendation: no restrictions on diet Diet Texture: Regular Texture Diet Wound Care Instructions: Keep incision clean and dry. daily dressing changes - gauze and tape Additional Instructions: No bending/lifting/twisting wear brace when out of bed Keep incision clean and dry. daily dressing changes No NSAIDs follow up in 2 weeks, call office with any issues @ [phone] - Follow Up Care Current Providers and Referrals: Judy Quinones MD [Primary Care Provider] - As per Instructions David Schmitz MD [Medical Doctor] -
--- NOTE | 2018-06-25 10:55 | ASMTLACE ---
LACE Length of stay for Answers: 2 days current admission Acuity / Level of Answers: Yes Care: Did the patient have an inpatient admission? Comorbidities - select Answers: Any tumor (including all that apply lymphoma or leukemia) Congestive heart failure Other Notes: HTN # of Emergency department Answers: 1-2 visits in the last 6 months Score: 11 Date Signed: 06/25/2018 10:54 AM Electronically Signed By:Letty Hernandez RN
--- NOTE | 2018-06-25 10:56 | ASMTCMCOM ---
CM Note CM Note Notes: Patient has been medically cleared for discharge to home. [facility] alerted. CM available should other needs arise. Plan: Home with [facility] Date Signed: 06/25/2018 10:56 AM Electronically Signed By:Letty Hernandez RN
--- NOTE | 2018-06-25 15:06 | ASDISCHSUM ---
Discharge Information Plan Status:Home with Home Health Medically Cleared to Leave:06/25/2018 Discharge Date:06/25/2018 12:48 PM D/C Disposition:Home Health Service ADT D/C Disposition:Home Health Service Projected Discharge Date:06/25/2018 11:00 AM Transportation at D/C:Family Discharge Delay Reason: Follow-Up Date:06/25/2018 11:00 AM Discharge Slot: Final Diagnosis: Placement Information Referral Type:*Home Health Care Services Referral ID:[id number] Provider Name:[facility] [address] [address] Address 2: City:[place] Selection Factors: State:[place] Patient Contact Information Contact Name:ALANA Relationship: Address:[facility] [phone] [place] Phone: State/Zip Code:[place] [phone] Email: Financial Information Financial Class:Medicare Primary Plan Desc:MEDICARE INPATIENT Primary Plan Number:[id number] Secondary Plan Desc:[employer] Secondary Plan Number:[id number] Assessment Information LACE LACE Length of stay for Answers: 2 days current admission Acuity / Level of Answers: Yes Care: Did the patient have an inpatient admission? Comorbidities - select Answers: Any tumor (including all that apply lymphoma or leukemia) Congestive heart failure Other Notes: HTN # of Emergency department Answers: 1-2 visits in the last 6 months Score: 11 Date Signed: 06/25/2018 10:54 AM Electronically Signed By:Letty Hernandez RN [facility] CM Progress Note CM Note CM Note Notes: Pt post op day 4 L 4-5 TLIF and posterior fusion. Pt d/c from [facility] 06/21/18 with [facility] PT. Pt returns with post op pain. [facility] PT attempted one visit but pt was in pain and sent to ED. Home care PT observed to be sleeping in recliner which may not be best for back precautions. OT/PT to eval this admit again. CM to follow. Date Signed: 06/23/2018 03:08 PM Electronically Signed By:BERRY Valladares [facility] CM Progress Note CM Note CM Note Notes: Patient has been medically cleared for discharge to home. [facility] alerted. CM available should other needs arise. Plan: Home with [facility] Date Signed: 06/25/2018 10:56 AM Electronically Signed By:Letty Hernandez RN Intervention Information
--- NOTE | 2018-07-07 13:30 | GDS ---
[f rep st] DISCHARGE SUMMARY ADMITTING DIAGNOSIS: The patient is status post L4-5 laminectomy with transforaminal lumbar interbod y fusion on June 19, 2018, readmitted for pain control. DISCHARGE DIAGNOSIS: Status post L4-5 laminectomy and transforaminal lumbar interbody fusion with po sterior fusion. CONSULTS: Physical Therapy, Occupational Therapy, Case Management. DISPOSITION: Home with home health care. HOSPITAL COURSE: The patient is a 77-year-old female patient who had previously undergone an L4-5 la minectomy with right-sided TLIF and posterior fusion by Dr. Schmitz at [facility] on 2017. She recovered well during her hospitalization after her procedure and was discharged t o home. On the , she developed worsening pain into her right leg and she was not able to control her pain while at home, so she presented to the [facility] Emergency Room for further evaluat ion and treatment. The patient was subsequently admitted to the Neurosurgery service. She underwent a set of x-rays which demonstrated stable hardware. We worked in optimizing pain management and had the patient work with Physical Therapy and Occupational Therapy. It was recommended that she discha rge to a fpc facility, but the patient refused this and instead preferred to go home with home health care. On June 25, 2018, the patient's pain had improved significantly. She was ambulat ing well with therapies and she was subsequently discharged to home with home health care. DISCHARGE INSTRUCTIONS: Diet: As tolerated. Activity: No bending, lifting, or twisting. The janet ent to wear a lumbar brace whenever out of bed. She will monitor incision for any signs of infection . Avoid soaking the incision. MEDICATIONS: Please see the medication reconciliation. FOLLOWUP: The patient has been asked to follow up with Dr. Schmitz in the office in approximately 2-3 weeks. We have asked the patient to call sooner with any questions or concerns at [phone]. /[id number]/MODL
== END 2018-06-25 12:48 | disposition home health service (06) | DRG 948 ==
LOC: EDUNIT# → F3N 21:11 → OBSVTOIN 21:47
PROVIDERS: ADMIT Neurological Surgery; ATTEND Neurological Surgery
DX: G89.18 Other acute postprocedural pain (principal); Z98.1 Arthrodesis status; I11.0 Hypertensive heart disease with heart failure; I50.9 Heart failure, unspecified; Z95.810 Presence of automatic (implantable) cardiac defibrillator; Z85.3 Personal history of malignant neoplasm of breast; Z87.891 Personal history of nicotine dependence
CPT/HCPCS: 96374; 97116-GP; 97162-GP; 97166-GO; 97530-GP; 97535-GO; G8978-GP-CI; G8978-GP-CL; G8979-GP-CI; G8979-GP-CJ; G8980-GP-CI; G8987-GO-CL; G8988-GO-CI; G8989-GO-CI; J1170; J1650

== ENCOUNTER → 2018-07-29 | Outpatient (CLI) | payer OTHER | LOC: CIMAGING 16:10 | PROVIDERS: ATTEND Physician Assistant Surgical | DX: Z98.1 Arthrodesis status (principal) | CPT/HCPCS: 72100-PO ==

== ENCOUNTER → 2018-08-25 | Outpatient (CLI) | payer OTHER | LOC: CIMAGING 09:02 | PROVIDERS: ATTEND Internal Medicine | DX: Z12.31 Encounter for screening mammogram for malignant neoplasm of breast (principal); Z85.3 Personal history of malignant neoplasm of breast ==

== ENCOUNTER → 2018-09-07 | Outpatient (CLI) | payer OTHER | LOC: CIMAGING 16:14 | PROVIDERS: ATTEND Neurological Surgery | DX: Z98.1 Arthrodesis status (principal); M51.36 Other intervertebral disc degeneration, lumbar region | CPT/HCPCS: 72100-PO ==

== ENCOUNTER → 2018-11-04 | Outpatient (CLI) | payer OTHER | LOC: CIMAGING 09:13 | PROVIDERS: ATTEND Physician Assistant | DX: M16.0 Bilateral primary osteoarthritis of hip (principal); M51.36 Other intervertebral disc degeneration, lumbar region; M51.35 Other intervertebral disc degeneration, thoracolumbar region; M89.38 Hypertrophy of bone, other site; Z98.1 Arthrodesis status | CPT/HCPCS: 72131-PO; 73521-PO ==

== ENCOUNTER → 2018-12-05 | Outpatient (CLI) | payer OTHER | LOC: CIMAGING 16:31 | PROVIDERS: ATTEND Neurological Surgery | DX: Z98.1 Arthrodesis status (principal); M51.36 Other intervertebral disc degeneration, lumbar region; M41.86 Other forms of scoliosis, lumbar region | CPT/HCPCS: 72100-PO ==

== ENCOUNTER → 2019-02-18 | Outpatient (CLI) | payer OTHER | LOC: EMCIMAGING 09:34 | PROVIDERS: ATTEND Nurse Practitioner | DX: Z09 Encounter for follow-up examination after completed treatment for conditions other than malignant neoplasm (principal); Z98.1 Arthrodesis status; M51.36 Other intervertebral disc degeneration, lumbar region; M41.86 Other forms of scoliosis, lumbar region | CPT/HCPCS: 72100-PN ==